=== PATIENT | male | born 1950 | race African-American/Black ===

== ENCOUNTER 2017-03-03 15:14 | Inpatient (IN) | payer MEDICARE, OTHER ==
[~2017-03-03] VITALS: Ht 165.1 cm; Wt 114.5 kg
[~2017-03-03 15:14] MED LIST: ASA; HIGH CHOLESTEROL MED; HTN MED; STOMACH PILL; STOOL SOFTNER; [UNRECOGNIZED DRUG - OTHER]
[2017-03-03] MEDS ORDERED: LOSA25TA21 PO (15:24)
[2017-03-03] MEDS ORDERED: ASPI81 PO (15:24)
[2017-03-03] MEDS ORDERED: FURO40 PO (15:24)
[2017-03-03] MEDS ORDERED: AMLO-511 PO (15:24)
[2017-03-03] MEDS ORDERED: SPIR25 PO (15:24)
[2017-03-03] MEDS ORDERED: OMEP20 PO (15:24)
[2017-03-03] MEDS ORDERED: ATOR40TA28 PO (15:24)
[2017-03-03] MEDS ORDERED: CARV12 PO (15:24)
[2017-03-03] MEDS ORDERED: IPRATROPIUM BROMIDE 0.5 MG/2.5 ML NEB SOLUTION NEB ONE (15:30)
[2017-03-03] MEDS ORDERED: LEVALBUTEROL HCL 1.25 MG/0.5 ML NEB SOLUTION NEB ONE (15:30)
[2017-03-03] MEDS ORDERED: LEVOFLOXACIN 500 MG/D5% WATER 100 ML IV ONE (16:00)
[2017-03-03] MEDS ORDERED: ALBUTEROL SULFATE 2.5 MG/0.5 ML NEB SOLUTION NEB ONE (16:10)
[2017-03-03 16:29] LABS: BASOPHILS % (AUTO) 0.4 % (0.0-2.0); EOSINOPHILS % (AUTO) 1.7 % (1.0-6.0); HEMATOCRIT 35.2 % (41-53); HEMOGLOBIN 11.3 g/dL (13.5-17.5); LYMPHOCYTES % (AUTO) 36.2 % (22.0-44.0); MEAN CORPUSCULAR HEMOGLOBIN 27.4 pg (26.0-34.0); MEAN CORPUSCULAR HGB CONC 32.3 G/dL (31.0-37.0); MEAN CORPUSCULAR VOLUME 85 fL (80-100); MONOCYTES # (AUTO) 0.6 K/uL (0.1-1.0); MONOCYTES % (AUTO) 10.7 % (2.0-9.0); NEUTROPHILS # (AUTO) 2.8 K/uL (1.8-7.7); PLATELET COUNT (AUTO) 226 K/uL (150-450); RED BLOOD CELL COUNT(AUTO) 4.14 MIL/uL (4.50-5.90); RED CELL DISTRIBUTION WIDTH 15.8 % (11.5-14.5); WHITE BLOOD COUNT (AUTO) 5.4 K/uL (4.5-11.0)
[2017-03-03 16:50] LABS: ANION GAP 6 mmol/L (8-16); CARBON DIOXIDE 32 mmol/L (22-29); CHLORIDE 100 mmol/L (98-107); CREATININE 0.96 mg/dL (0.60-1.30); GLOMERULAR FILTR. RATE CALC > 60 mL/min (>60); POTASSIUM 3.9 mmol/L (3.5-5.1); SODIUM SERUM 138 mmol/L (136-145); UREA NITROGEN, BLOOD 14 mg/dL (7-18)
[2017-03-03 16:54] LABS: B-TYPE NATRIURETIC PEPTIDE 23 pg/mL (0-100)
[2017-03-03 17:14] LABS: ALANINE AMINOTRANSFERASE 28 U/L (12-78); ALBUMIN 3.5 g/dL (3.4-5.0); ASPARTATE AMINOTRANSFERASE 26 U/L (15-37); BILIRUBIN,TOTAL 0.8 mg/dL (0.1-1.0); CREATINE KINASE MB 1.6 ng/mL (0-5); CREATINE KINASE, TOTAL 522 U/L (39-308); TOTAL PROTEIN, SERUM 8.1 g/dL (6.4-8.2)
[2017-03-03] MEDS ORDERED: MethylPREDNISolone SOD SUCC 125 MG/2 ML VIAL IVP ONE (17:30)
[2017-03-03] MEDS ORDERED: 0.9% SODIUM CHLORIDE 10 ML SYRINGE IVP PRN (18:45)
[2017-03-03] MEDS ORDERED: ACETAMINOPHEN 325 MG TABLET PO PRN ×2 (18:45→19:30)
[2017-03-03] MEDS ORDERED: ONDANSETRON HCL 4 MG/2 ML VIAL IVP PRN ×2 (18:45→19:30)
[2017-03-03] MEDS: IPRATROPIUM BROMIDE 0.5 MG/2.5 ML NEB SOLUTION NEB SCH (18:47)
[2017-03-03] MEDS: ALBUTEROL SULFATE 2.5 MG/0.5 ML NEB SOLUTION NEB SCH (18:47)
[2017-03-03] MEDS ORDERED: NITROGLYCERIN 0.4 MG SUBLINGUAL TABLET #25 SL PRN (19:30)
[2017-03-03] MEDS ORDERED: ZOLPIDEM TARTRATE 5 MG TABLET PO PRN (19:30)
[2017-03-03] MEDS ORDERED: OxyCODONE HCL/ACETAMINOPHEN 5-325 MG TABLET PO PRN (19:30)
[2017-03-03] MEDS ORDERED: BENZOCAINE/MENTHOL LOZENGE [8 LOZENGES/PACKET] MM PRN (19:30)
[2017-03-03] MEDS ORDERED: MAGNESIUM HYDROXIDE SUSPENSION 30 ML UDCUP PO PRN (19:30)
[2017-03-03] MEDS ORDERED: BISACODYL 10 MG RECTAL RECTAL SUPPOSITORY PR PRN (19:30)
[2017-03-03 20:33] VITALS: BP 116/74
[2017-03-03] MEDS: MethylPREDNISolone SOD SUCC 125 MG/2 ML VIAL IVP SCH (21:54)
[2017-03-03] MEDS: HEPARIN SODIUM,PORCINE 5,000 UNITS/ML VIAL SQ SCH (21:54)
[2017-03-03] MEDS: CARVEDILOL 12.5 MG TABLET PO SCH (21:54)
[2017-03-03 23:58] VITALS: BP 101/68
[2017-03-04] VITALS (7 sets, daily range): BP systolic 94–118; BP diastolic 19–76
[2017-03-04] MEDS: IPRATROPIUM BROMIDE 0.5 MG/2.5 ML NEB SOLUTION NEB SCH (02:49)
[2017-03-04] MEDS: ALBUTEROL SULFATE 2.5 MG/0.5 ML NEB SOLUTION NEB SCH (02:49)
[2017-03-04 07:34] LABS: BASOPHILS # (AUTO) 0.01 K/uL (0.00-0.20); BASOPHILS % (AUTO) 0.2 % (0.0-2.0); EOSINOPHILS % (AUTO) 0 % (1.0-6.0); HEMATOCRIT 36.2 % (41-53); HEMOGLOBIN 11.4 g/dL (13.5-17.5); LYMPHOCYTES % (AUTO) 27.6 % (22.0-44.0); MEAN CORPUSCULAR HEMOGLOBIN 26.9 pg (26.0-34.0); MEAN CORPUSCULAR HGB CONC 31.6 G/dL (31.0-37.0); MEAN CORPUSCULAR VOLUME 85 fL (80-100); MONOCYTES # (AUTO) 0.1 K/uL (0.1-1.0); MONOCYTES % (AUTO) 3.6 % (2.0-9.0); NEUTROPHILS # (AUTO) 2.4 K/uL (1.8-7.7); NEUTROPHILS % (AUTO) 68.6 % (40.0-70.0); PLATELET COUNT (AUTO) 195 K/uL (150-450); RED BLOOD CELL COUNT(AUTO) 4.26 MIL/uL (4.50-5.90); RED CELL DISTRIBUTION WIDTH 15.4 % (11.5-14.5); WHITE BLOOD COUNT (AUTO) 3.4 K/uL (4.5-11.0)
[2017-03-04 08:00] LABS: ALANINE AMINOTRANSFERASE 26 U/L (12-78); ALBUMIN 3.3 g/dL (3.4-5.0); ANION GAP 7 mmol/L (8-16); ASPARTATE AMINOTRANSFERASE 26 U/L (15-37); BILIRUBIN,TOTAL 0.5 mg/dL (0.1-1.0); CALCIUM, TOTAL 9.2 mg/dL (8.8-10.5); CARBON DIOXIDE 30 mmol/L (22-29); CHLORIDE 102 mmol/L (98-107); CHOL/HDL RATIO 3.8 (4.2-7.3); CREATININE 0.73 mg/dL (0.60-1.30); GLOMERULAR FILTR. RATE CALC > 60 mL/min (>60); POTASSIUM 3.8 mmol/L (3.5-5.1); SODIUM SERUM 139 mmol/L (136-145); THYROID STIMULATING HORMONE 0.34 uIU/mL (0.36-3.74); TOTAL PROTEIN, SERUM 8.1 g/dL (6.4-8.2); UREA NITROGEN, BLOOD 13 mg/dL (7-18)
[2017-03-04] MEDS ORDERED: AmLODIPine BESYLATE 5 MG TABLET PO SCH (09:00)
[2017-03-04] MEDS: MethylPREDNISolone SOD SUCC 125 MG/2 ML VIAL IVP SCH ×3 (09:52→21:03)
[2017-03-04] MEDS: CARVEDILOL 12.5 MG TABLET PO SCH ×2 (09:52→21:04)
[2017-03-04] MEDS: HEPARIN SODIUM,PORCINE 5,000 UNITS/ML VIAL SQ SCH ×2 (09:53→21:03)
[2017-03-04] MEDS: ATORVASTATIN CALCIUM 40 MG TABLET PO SCH (09:54)
[2017-03-04] MEDS: PANTOPRAZOLE SODIUM 40 MG DR TABLET PO SCH (09:54)
[2017-03-04] MEDS: FUROSEMIDE 40 MG TABLET PO SCH (09:54)
[2017-03-04] MEDS: ASPIRIN 81 MG CHEWABLE TABLET PO SCH (09:55)
[2017-03-04] MEDS: SPIRONOLACTONE 25 MG TABLET PO SCH (09:55)
[2017-03-04] MEDS: LOSARTAN POTASSIUM 25 MG TABLET PO SCH (09:55)
[2017-03-04] MEDS: CHOLECALCIFEROL (VIT D3) 1,000 UNITS TABLET PO SCH (14:02)
[2017-03-04] MEDS ORDERED: SODIUM CHLORIDE 0.9% 250 ML IV ONE (16:06)
[2017-03-04] MEDS: LEVOFLOXACIN 500 MG/D5% WATER 100 ML IV SCH (16:27)
[2017-03-05 04:16] VITALS: BP 103/51
[2017-03-05 07:23] VITALS: BP 111/58
[2017-03-05] MEDS: ALBUTEROL SULFATE 2.5 MG/0.5 ML NEB SOLUTION NEB PRN ×3 (07:54→20:35)
[2017-03-05] MEDS: IPRATROPIUM BROMIDE 0.5 MG/2.5 ML NEB SOLUTION NEB PRN ×3 (07:54→20:35)
[2017-03-05 09:22] VITALS: BP 117/77
[2017-03-05] MEDS: MethylPREDNISolone SOD SUCC 125 MG/2 ML VIAL IVP SCH ×3 (09:23→21:07)
[2017-03-05] MEDS: LOSARTAN POTASSIUM 25 MG TABLET PO SCH (09:24)
[2017-03-05] MEDS: HEPARIN SODIUM,PORCINE 5,000 UNITS/ML VIAL SQ SCH ×2 (09:25→21:07)
[2017-03-05] MEDS: CARVEDILOL 12.5 MG TABLET PO SCH ×2 (09:25→21:07)
[2017-03-05] MEDS: FUROSEMIDE 40 MG TABLET PO SCH (09:26)
[2017-03-05] MEDS: PANTOPRAZOLE SODIUM 40 MG DR TABLET PO SCH (09:26)
[2017-03-05] MEDS: ASPIRIN 81 MG CHEWABLE TABLET PO SCH (09:28)
[2017-03-05] MEDS: ATORVASTATIN CALCIUM 40 MG TABLET PO SCH (09:28)
[2017-03-05] MEDS: SPIRONOLACTONE 25 MG TABLET PO SCH (09:29)
[2017-03-05] MEDS: CHOLECALCIFEROL (VIT D3) 1,000 UNITS TABLET PO SCH (09:29)
[2017-03-05 11:17] VITALS: BP 106/64
[2017-03-05] MEDS: GuaiFENesin/D-METHORPHAN/PHENYLEPH 5 ML LIQUID ORAL.SYG PO PRN ×2 (13:43→21:08)
[2017-03-05 15:37] VITALS: BP 95/66
[2017-03-05] MEDS: LEVOFLOXACIN 500 MG/D5% WATER 100 ML IV SCH (15:43)
[2017-03-05 19:50] VITALS: BP 115/72
[2017-03-05] MEDS: OXYGEN THERAPY IH SCH (21:13)
[2017-03-06] VITALS (7 sets, daily range): BP systolic 99–126; BP diastolic 53–74
[2017-03-06] MEDS: IPRATROPIUM BROMIDE 0.5 MG/2.5 ML NEB SOLUTION NEB PRN ×4 (02:36→20:13)
[2017-03-06] MEDS: ALBUTEROL SULFATE 2.5 MG/0.5 ML NEB SOLUTION NEB PRN ×4 (02:36→20:13)
[2017-03-06] MEDS: OXYGEN THERAPY IH SCH ×2 (08:58→21:29)
[2017-03-06] MEDS: MethylPREDNISolone SOD SUCC 125 MG/2 ML VIAL IVP SCH ×3 (08:58→21:24)
[2017-03-06] MEDS: CHOLECALCIFEROL (VIT D3) 1,000 UNITS TABLET PO SCH (08:59)
[2017-03-06] MEDS: ASPIRIN 81 MG CHEWABLE TABLET PO SCH (08:59)
[2017-03-06] MEDS: ATORVASTATIN CALCIUM 40 MG TABLET PO SCH (08:59)
[2017-03-06] MEDS: FUROSEMIDE 40 MG TABLET PO SCH (08:59)
[2017-03-06] MEDS: CARVEDILOL 12.5 MG TABLET PO SCH ×2 (08:59→21:24)
[2017-03-06] MEDS: PANTOPRAZOLE SODIUM 40 MG DR TABLET PO SCH (08:59)
[2017-03-06] MEDS: HEPARIN SODIUM,PORCINE 5,000 UNITS/ML VIAL SQ SCH ×2 (08:59→21:25)
[2017-03-06] MEDS: LOSARTAN POTASSIUM 25 MG TABLET PO SCH (09:00)
[2017-03-06] MEDS: SPIRONOLACTONE 25 MG TABLET PO SCH (09:00)
[2017-03-06] MEDS: LEVOFLOXACIN 500 MG/D5% WATER 100 ML IV SCH (16:02)
[2017-03-06] MEDS: BENZONATATE 100 MG CAPSULE PO SCH ×2 (16:02→21:25)
[2017-03-06] MEDS: GuaiFENesin/D-METHORPHAN/PHENYLEPH 5 ML LIQUID ORAL.SYG PO PRN (16:03)
[2017-03-07 04:53] VITALS: BP 102/63
[2017-03-07 07:13] VITALS: BP 106/57
[2017-03-07] MEDS: LOSARTAN POTASSIUM 25 MG TABLET PO SCH ×2 (09:00→11:32)
[2017-03-07 09:11] VITALS: BP 107/73
[2017-03-07] MEDS: OXYGEN THERAPY IH SCH (09:16)
[2017-03-07] MEDS: MethylPREDNISolone SOD SUCC 125 MG/2 ML VIAL IVP SCH (09:19)
[2017-03-07] MEDS: SPIRONOLACTONE 25 MG TABLET PO SCH (09:19)
[2017-03-07] MEDS: FUROSEMIDE 40 MG TABLET PO SCH (09:20)
[2017-03-07] MEDS: CHOLECALCIFEROL (VIT D3) 1,000 UNITS TABLET PO SCH (09:20)
[2017-03-07] MEDS: BENZONATATE 100 MG CAPSULE PO SCH ×2 (09:20→15:38)
[2017-03-07] MEDS: ATORVASTATIN CALCIUM 40 MG TABLET PO SCH (09:20)
[2017-03-07] MEDS: ASPIRIN 81 MG CHEWABLE TABLET PO SCH (09:20)
[2017-03-07] MEDS: PANTOPRAZOLE SODIUM 40 MG DR TABLET PO SCH (09:20)
[2017-03-07] MEDS: HEPARIN SODIUM,PORCINE 5,000 UNITS/ML VIAL SQ SCH (09:21)
[2017-03-07] MEDS: GuaiFENesin/D-METHORPHAN/PHENYLEPH 5 ML LIQUID ORAL.SYG PO PRN (09:34)
[2017-03-07 11:15] VITALS: BP 138/87
[2017-03-07 11:31] VITALS: BP 131/76
[2017-03-07] MEDS: CARVEDILOL 12.5 MG TABLET PO SCH (11:32)
[2017-03-07] MEDS ORDERED: PredniSONE 20 MG TABLET PO ONE (13:00)
[2017-03-07] MEDS ORDERED: BENZ-51 PO (13:01)
[2017-03-07] MEDS ORDERED: MONT10TA21 PO (13:01)
[2017-03-07] MEDS ORDERED: VITAD1000 PO (13:02)
[2017-03-07] MEDS ORDERED: PRED20 PO (13:03)
[2017-03-07] MEDS: LEVOFLOXACIN 500 MG/D5% WATER 100 ML IV SCH (15:38)
[2017-03-07 15:39] VITALS: BP 123/68
== END 2017-03-07 18:20 | disposition home or self-care (01) | DRG 190 ==
LOC: EMS 15:16 → 5N 18:56
PROVIDERS: ADMIT Internal Medicine; ATTEND Internal Medicine
PROC: 5A09357 Assistance with Respiratory Ventilation, Less than 24 Consecutive Hours, Continuous Positive Airway Pressure (ICD-10-PCS; principal; 2017-03-06)
DX: J44.0 Chronic obstructive pulmonary disease with (acute) lower respiratory infection (principal); J18.9 Pneumonia, unspecified organism; J96.11 Chronic respiratory failure with hypoxia; I11.0 Hypertensive heart disease with heart failure; I50.22 Chronic systolic (congestive) heart failure; Z68.41 Body mass index [BMI] 40.0-44.9, adult; J98.11 Atelectasis; J44.1 Chronic obstructive pulmonary disease with (acute) exacerbation; E66.01 Morbid (severe) obesity due to excess calories; I25.10 Atherosclerotic heart disease of native coronary artery without angina pectoris; K21.9 Gastro-esophageal reflux disease without esophagitis; E78.5 Hyperlipidemia, unspecified; E55.9 Vitamin D deficiency, unspecified; F17.200 Nicotine dependence, unspecified, uncomplicated; G47.33 Obstructive sleep apnea (adult) (pediatric); Z82.49 Family history of ischemic heart disease and other diseases of the circulatory system; Z95.1 Presence of aortocoronary bypass graft; Z95.5 Presence of coronary angioplasty implant and graft; Z99.81 Dependence on supplemental oxygen; Z88.8 Allergy status to other drugs, medicaments and biological substances
CPT/HCPCS: 71250; 82306; 84443; 87040; 93005; 93306; 94640; 94660; 96365; 96366; 96375; 99285; J1644; J1956; J2930; J7050

== ENCOUNTER → 2017-11-30 | Outpatient (CLI) | payer MEDICARE, MEDICAID ==
[~2017-11-30] MED LIST changes: -ASA; +ASPI81 PO; +ATOR40TA28 PO; +BENZ-51 PO; +CARV12 PO; +FURO40 PO; -HIGH CHOLESTEROL MED; -HTN MED; +LOSA25TA21 PO; +MONT10TA21 PO; +OMEP20 PO; +PRED20 PO; +SPIR25 PO; -STOMACH PILL; -STOOL SOFTNER; +VITAD1000 PO; -[UNRECOGNIZED DRUG - OTHER]
== END | disposition home or self-care (01) ==
LOC: RADPV 12:44
PROVIDERS: ATTEND Internal Medicine
DX: M19.071 Primary osteoarthritis, right ankle and foot (principal); I11.0 Hypertensive heart disease with heart failure; I50.9 Heart failure, unspecified; I25.10 Atherosclerotic heart disease of native coronary artery without angina pectoris; E78.00 Pure hypercholesterolemia, unspecified; J44.9 Chronic obstructive pulmonary disease, unspecified

== ENCOUNTER 2022-02-12 06:21 | Day surgery (SDC) | payer MEDICARE, MEDICAID ==
[2022-02-10 12:21] LABS: COVID AG,FIA SOURCE NASAL SWAB
[~2022-02-12] VITALS: Ht 163.8 cm; Wt 110.7 kg
[~2022-02-12 06:21] MED LIST changes: +ASPI-1450 PO; -ASPI81 PO; -BENZ-51 PO; +BENZ-70 PO; +CHOL100018 PO; +KETOROLAC TROMETHAMINE 0.5% 5 ML OPHTHALMIC SOLUTION ONE; +LOSA-381 PO; -LOSA25TA21 PO; +MONT-35 PO; -MONT10TA21 PO; +MOXIFLOXACIN HCL 0.5% 3 ML OPHTHALMIC SOLUTION ONE; +PHENYLEPHRINE HCL 2.5% 2 ML OPHTHALMIC SOLUTION ONE; +PRED-554 PO; -PRED20 PO; +RINGERS SOLUTION,LACTATED 500 ML IV ONE; +SPIR-37 PO; -SPIR25 PO; +TROPICAMIDE 1% 2 ML OPHTHALMIC SOLUTION ONE; -VITAD1000 PO
[2022-02-12] MEDS: TROPICAMIDE 1% 2 ML OPHTHALMIC SOLUTION OD SCH ×3 (07:06→07:16)
[2022-02-12] MEDS: KETOROLAC TROMETHAMINE 0.5% 5 ML OPHTHALMIC SOLUTION OD SCH ×3 (07:06→07:16)
[2022-02-12] MEDS: MOXIFLOXACIN HCL 0.5% 3 ML OPHTHALMIC SOLUTION OD SCH ×3 (07:06→07:16)
[2022-02-12] MEDS: PHENYLEPHRINE HCL 2.5% 2 ML OPHTHALMIC SOLUTION OD SCH ×3 (07:06→07:16)
== END 2022-02-12 09:20 | disposition home or self-care (01) ==
LOC: SURGERY 06:21
PROVIDERS: ATTEND Ophthalmology
DX: H26.8 Other specified cataract (principal); Z53.8 Procedure and treatment not carried out for other reasons; Z79.899 Other long term (current) drug therapy; Z20.822 Contact with and (suspected) exposure to COVID-19
CPT/HCPCS: 93005; 87426; C9803; J7120

== ENCOUNTER 2022-04-16 06:01 | Day surgery (SDC) | payer MEDICARE, OTHER ==
[2022-04-15 12:17] LABS: COVID AG,FIA SOURCE NASOPHARYNGEAL
[~2022-04-16] VITALS: Ht 162.6 cm; Wt 111.8 kg
[~2022-04-16 06:01] MED LIST changes: -CHOL100018 PO; -KETOROLAC TROMETHAMINE 0.5% 5 ML OPHTHALMIC SOLUTION ONE; -MOXIFLOXACIN HCL 0.5% 3 ML OPHTHALMIC SOLUTION ONE; -PHENYLEPHRINE HCL 2.5% 2 ML OPHTHALMIC SOLUTION ONE; -PRED-554 PO; -TROPICAMIDE 1% 2 ML OPHTHALMIC SOLUTION ONE
[2022-04-16] MEDS ORDERED: POVIDONE-IODINE 5% 30 ML OPHTHALMIC SOLUTION OD ONE (06:02)
[2022-04-16] MEDS ORDERED: EPINEPHrine 1:1,000 [1 MG/ML] VIAL ET ONE (06:02)
[2022-04-16] MEDS ORDERED: CHONDR SULF A SOD/HYALURONATE 1.05 ML KIT IO ONE (06:02)
[2022-04-16] MEDS ORDERED: LIDOCAINE/PF 1% 2 ML VIAL CAUDAL ONE (06:02)
[2022-04-16] MEDS ORDERED: PrednisoLONE ACETATE 1% 5 ML OPHTHALMIC SUSPENSION AD ONE (06:02)
[2022-04-16] MEDS ORDERED: BALANCED SALT 15 ML OPHTHALMIC IRRIG.SOLN IO ONE (06:02)
[2022-04-16] MEDS ORDERED: RINGERS SOLUTION,LACTATED 500 ML IV ONE (06:43)
[2022-04-16] MEDS ORDERED: TROPICAMIDE 1% 2 ML OPHTHALMIC SOLUTION ONE (06:43)
[2022-04-16] MEDS ORDERED: MOXIFLOXACIN HCL 0.5% 3 ML OPHTHALMIC SOLUTION ONE (06:43)
[2022-04-16] MEDS ORDERED: PHENYLEPHRINE HCL 2.5% 2 ML OPHTHALMIC SOLUTION ONE (06:43)
[2022-04-16] MEDS ORDERED: KETOROLAC TROMETHAMINE 0.5% 5 ML OPHTHALMIC SOLUTION ONE (06:43)
[2022-04-16] MEDS: KETOROLAC TROMETHAMINE 0.5% 5 ML OPHTHALMIC SOLUTION OD SCH ×3 (06:54→07:04)
[2022-04-16] MEDS: TROPICAMIDE 1% 2 ML OPHTHALMIC SOLUTION OD SCH ×3 (06:55→07:05)
[2022-04-16] MEDS: MOXIFLOXACIN HCL 0.5% 3 ML OPHTHALMIC SOLUTION OD SCH ×3 (06:55→07:04)
[2022-04-16] MEDS: PHENYLEPHRINE HCL 2.5% 2 ML OPHTHALMIC SOLUTION OD SCH ×3 (06:55→07:05)
[2022-04-16] MEDS ORDERED: MIDAZOLAM HCL 2 MG/2 ML VIAL IVP ONE (12:00)
[2022-04-16] MEDS ORDERED: FentaNYL CITRATE PF 100 MCG/2 ML VIAL IVP ONE (12:00)
== END 2022-04-16 09:25 | disposition home or self-care (01) ==
LOC: SURGERY 06:01
PROVIDERS: ATTEND Ophthalmology
DX: H25.11 Age-related nuclear cataract, right eye (principal); J44.9 Chronic obstructive pulmonary disease, unspecified; I10 Essential (primary) hypertension; Z88.0 Allergy status to penicillin; Z88.8 Allergy status to other drugs, medicaments and biological substances; Z79.899 Other long term (current) drug therapy; Z20.822 Contact with and (suspected) exposure to COVID-19; Z87.891 Personal history of nicotine dependence; Z95.5 Presence of coronary angioplasty implant and graft; Z98.890 Other specified postprocedural states
CPT/HCPCS: 93005; 87426; 66984; C9803; J0171; J3010; J3490; J2250; Q9967; J7120; V2632